=== PATIENT | male | born 1985 | race Caucasian/White ===

== ENCOUNTER → 2019-03-16 10:55 | Outpatient (CLI) | payer OTHER, SELFPAY ==
[2019-03-16 12:26] LABS: Erythrocyte Sedimentation Rate 5 mm/hr (0-15)
[2019-03-16 12:29] LABS: Hematocrit 40.9 % (40-54); Mean Corp Hgb Conc 34.2 g/dL (32-36); Mean Corpuscular Hgb 30.7 pg (27.0-32.0); Mean Corpuscular Volume 89.7 fL (80-94); Mean Platelet Vol. 9.8 fl (6.2-12.0); Platelet Count 267 K/mm3 (150-450); RBC Distribution Width CV 13.4 % (11.6-14.6); RBC Distribution Width SD 44.3 fl (35.1-43.9); Red Blood Count 4.56 M/mm3 (4.6-6.2); White Blood Count 5.4 K/mm3 (4.4-11.0)
[2019-03-16 12:53] LABS: Vitamin B12 518 pg/mL (211-911); Vitamin D,25 Hydroxy 36.5 ng/mL (29.95-100.01)
[2019-03-16 12:54] LABS: Anion Gap 3 (5-15); BUN 17 mg/dL (7-18); BUN/Creat Ratio 19.5 RATIO (10-20); Calcium,Total 9.2 mg/dL (8.5-10.1); Chloride 104 mmol/L (98-107); Creatinine, Serum 0.87 mg/dL (0.70-1.30); EST Glomerular Filtration Rate 106 mL/min (>60); Est Glom Filt Rate - Afr Amer 128 mL/min (>60); Glucose 92 mg/dL (74-106); Iron 80 ug/dL (65-175); Potassium 3.8 mmol/L (3.5-5.1); Sodium Level 137 mmol/L (136-145); Thyroid Stim Hormone (TSH) 1.18 uIU/mL (0.358-3.74)
== END ==
PROVIDERS: Family Provider Family Medicine; PCP Family Medicine; Referring Provider Family Medicine; Visit Provider Family Medicine
DX: R45.86 Emotional lability (principal)
CPT/HCPCS: 36415; 80048; 82306; 82607; 83540; 84403; 84443; 85027; 85652